=== PATIENT | female | born 1995 | race Caucasian/White ===

== ENCOUNTER 2018-07-19 06:20 | Day surgery (SDC) | payer BC ==
[~2018-07-19 06:20] MED LIST: Buffered Lidocaine 0.9% SYRIN* 5 ML/SYR SYRINGE INTRADERM ONE; Sodium Citrate/Citric Acid* 15 ML UDC PO ONE
[2018-07-19] MEDS ORDERED: Sodium Citrate/Citric Acid* 15 ML UDC ONE (06:57)
[2018-07-19] MEDS ORDERED: ceFAZolin 2 GM PREMIX in ORs 2 GM/50 ML BAG IVPB ONE (06:58)
[2018-07-19] MEDS ORDERED: Buffered Lidocaine 0.9% SYRIN* 5 ML/SYR SYRINGE ONE (06:58)
[2018-07-19] MEDS ORDERED: Bupivacaine 0.5% W/EPI SDV* 30 ML VIAL ONE (07:04)
[2018-07-19] MEDS ORDERED: EPINEPHRINE 1 MG/ML 1 ML VIAL ONE (07:04)
[2018-07-19] MEDS ORDERED: Midazolam* 1 MG/ML 2 ML VIAL (2 MG) ONE (07:28)
[2018-07-19] MEDS ORDERED: fentaNYL* 50 MCG/ML 2 ML VIAL (100 MCG VIAL) ONE ×4 (07:29→12:51)
[2018-07-19] MEDS ORDERED: Lidocaine 2% PF * 5 ML VIAL ONE (07:53)
[2018-07-19] MEDS ORDERED: Propofol* 10 MG/ML 20 ML BTL IV PUSH ONE (07:53)
[2018-07-19] MEDS ORDERED: Dexamethasone IV* 4 MG/ML 1 ML (4 MG) ONE (07:55)
[2018-07-19] MEDS ORDERED: Ondansetron INJ* 2 MG/ML VIAL IV PRN (08:29)
[2018-07-19] MEDS ORDERED: Naloxone* 0.4 MG/ML 1 ML VIAL IV PRN (08:29)
[2018-07-19] MEDS ORDERED: Ketorolac INJ* 30 MG/ML 1 ML VIAL ONE (10:54)
[2018-07-19] MEDS: fentaNYL* 50 MCG/ML 2 ML VIAL (100 MCG VIAL) IV PRN ×3 (12:01→12:59)
[2018-07-19] MEDS ORDERED: Morphine VIAL* 10 MG/ML 1 ML VIAL ONE (12:55)
[2018-07-19 13:46] VITALS: BP 127/70
[2018-07-19] MEDS ORDERED: oxyCODONE/Acetamin 5/325 MG* TAB ONE (13:59)
--- NOTE | 2018-07-20 06:58 | RAD ---
INDICATION: Right knee arthroscopically, fluoroscopic guidance. COMPARISON: Comparison is made with a prior MRI of the right knee from June 04, 2018. TECHNIQUE: 6 seconds of intermittent fluoroscopic guidance were provided a single spot film was obtained. FINDINGS: A spot film of a surgical instrument was obtained in the operating room. IMPRESSION: INTRAOPERATIVE CONTROL FILMS. CPT II Codes: G9500
--- NOTE | 2018-07-22 04:54 | OP ---
DATE OF OPERATION: 07/19/18 - [facility] DATE OF : 89 SURGEON: Gregorio Cisse MD ASSISTANTS: SAMMI Campbell and SAMMI Carias. A physician assistant to the vice president was required for the length of the procedure for assistance with positioning, knee manipulation, retraction, and closure. ANESTHESIOLOGIST: Dr. Lukas Rankin ANESTHESIA: General anesthesia, adductor canal block regional anesthesia. PRE-OP DIAGNOSES: 1. Right knee ACL tear, complete versus high grade partial thickness. 2. Right knee partial thickness, low-grade, LCL lateral collateral ligament tear. 3. Right knee partial thickness proximal MCL tear, medial collateral ligament. 4. Right knee possible partial thickness popliteus muscle tear. POST-OP DIAGNOSES: 1. Right knee ACL tear, complete, full thickness. 2. Right knee low-grade partial thickness lateral collateral ligament tear. 3. Right knee partial thickness proximal medial collateral ligament tear. 4. Right knee possible partial thickness popliteus muscle injury. 5. Right knee medial meniscus tear. OPERATIVE PROCEDURE: 1. Right knee arthroscopic ACL reconstruction with bone patellar bone autograft. 2. Right knee examination under anesthesia. 3. Right knee arthroscopic medial meniscus repair, all inside. ANTIBIOTICS: Ancef 2 g IV. IV FLUIDS: 1000 cc crystalloid. TOURNIQUET TIME: A total of 124 minutes at 300 mmHg. The patient had 41 minutes up followed by lengthy period of the tourniquet down followed by 83 minutes up. Nursing was tracking time. SKIN TO SKIN TIME: 192 minutes. ARTHROSCOPIC FLUID UTILIZED: Six bags each with 3 L for a total of 18 L. Radiation exposure was the use of a mini C-arm for 6 seconds for a total of 2.43 milligray. SPECIMEN: None. IMPLANTS: MELINDA Mitek screws, BioComposite. 10 x 23 mm in the femur. 9 x 23 mm in the tibia. Also, used a partially threaded non-cannulated large fragment set 4.5 mm Synthes screw with washer for backup fixation on the tibia. I used an Arthrex Fast-Fix 360 x 1 for my medial meniscus repair. COMPLICATIONS: None. ESTIMATED BLOOD LOSS: Minimal. INDICATIONS FOR PROCEDURE: The patient is a 22-year-old woman, tri[employer] at [employer], [employer] from [place], [place] who plays rugby, who sustained a knee injury on 06/01/18, over 6 weeks preoperatively. See history and physical for full details of injury and recovery preoperatively. MRI showed injuries to the collateral ligaments as well as to the ACL. The patient's MCL tear was partial and proximal, so I thought it would heal well with nonoperative management. The patient appeared to have a low-grade partial thickness, stretch injury to the lateral collateral ligament and popliteus. She had no increased laxity with varus stress testing and a negative dial test, so I believe that this would also be managed nonoperatively. The ACL, however, I recommended operative management for. The patient did rehabilitation preoperatively. I spoke with the patient and her family about nonoperative versus operative treatment of this injury. I also spoke about the different graft options. We decided on operative management with bone patellar bone autograft. Although meniscus treatment was not done, the surgical consent as it was not demonstrated by MRI imaging, we discussed that I would evaluate and treat all components of the knee including the menisci. Discussed risks and potential complications of procedure. DESCRIPTION OF PROCEDURE: In preoperative holding, the patient signed a written consent. Operative extremity was marked in preoperative holding. The patient underwent an adductor canal block by Dr. Rankin of Anesthesia. The patient was brought in to the operating room and placed supine on operating room table. She was sedated and intubated. I performed a mini time-out. I then conducted an evaluation under anesthesia of the right knee. ACL testing included Kwame's and anterior drawer. This showed significant laxity without a firm endpoint. This was different from the contralateral uninjured left knee. I examined the MCL of the right knee. The patient did have some laxity with the knee at 30 degrees of flexion, but no laxity with the knee and 0 degrees of flexion. This was compared to the contralateral left knee. I evaluated the lateral collateral ligament of the right knee. No varus laxity. I performed a dial test with the patient supine rather than prone. I noted no increased external rotation with the knee in either 30 or 90 degrees of flexion. The exam under anesthesia confirmed my decision not to operate on the posterolateral corner of the right knee. I was comfortable with some laxity with the knee in 30 degrees of flexion. The fact that there was no laxity with 0 degrees of knee flexion and that the laxity was only limited with the knee in 30 degrees of flexion, may be comfortable as well with nonoperative management of the MCL injury. A tourniquet was placed around the right thigh. The right lower extremity was prepped and draped. Formal timeout was performed. An Esmarch was applied and the tourniquet was elevated to 300 mmHg. An anterolateral knee arthroscopy portal was made. With the arthroscope, I conducted diagnostic arthroscopy. No articular cartilage damage to the patellofemoral compartment. I dropped down to the medial compartment. Medial compartment looked somewhat narrow from anterior to posterior. The posterior horn of the medial meniscus seemed subluxed slightly anteriorly. I was able to turn to the medial compartment after I had an arthroscopic probe. I moved to the intercondylar notch. The patient had a clear full thickness tear of the ACL proximally. I moved to the lateral compartment. No articular cartilage injury or meniscus tear. I made an anteromedial knee arthroscopy portal under direct visualization. I entered an arthroscopic probe. I visualized closely the posterior horn of the medial meniscus. There appeared to be partial thickness tear of the undersurface of the meniscus close to the meniscocapsular junction. On the superior surface, there was no tear to the meniscus, but there appeared to be some tearing to the capsule. This was not significantly long; however, it appeared that the combination of these 2 tears was enough to allow that medial meniscus to sublux forward both with and without probing with the arthroscopic probe. I debated nonoperative versus operative management of this. Given the increased mobility of this posterior horn of the medial meniscus, I thought that this might lack the stability for good healing. Therefore, I thought a meniscus repair would facilitate improved healing. I entered a sled from one of the portals. I then placed a Fast-Fix 360 all inside suture anchor into the posterior horn in the location of the tearing. I made the stitch more of a vertical mattress than a horizontal mattress, although it was slightly obliqued. I tightened the suture and then cut the excess suture. I liked the reduction of the meniscus. I next placed the De Kraus knee positioner in place. We spent some time fully tightening the De Kraus positioner, which was fixated to the table suboptimally. I made a midline anterior longitudinal skin incision from just proximal to distal pole of the patella to the distal end of the tibial tubercle. I changed knives and dissected down to patellar tendon. Of note, the patient did not have any sort of significant paratenon present superficial to the patella, which I normally encounter in the surgery. I measured the patient's patellar tendon. I noted it to be on the thin side. It narrowed as it moved from proximal to distal. Also, it was a little bit on the short side, measuring just over 4 cm in length. Two conserve remaining patellar tendon, I decided to make my graft 9 mm in width of the inner third of the patellar tendon rather than 10 mm. I made my cuts with a 10 blade. I then debbie out my planned bone cuts with electrocautery. I then used a micro sagittal saw to make these cuts with a 25 mm bone block taken off the distal pole of the patella and a 30 mm bone block taken off the tibial tubercle. We needed to switch saw devices twice, but finally I completed those cuts. I used a curved osteotome to complete the cuts. I dropped the tourniquet after having closed the patellar tendon with buried figure- of-eight stitches using Ethibond 0 suture, multiple along the length of the patellar tendon. We placed a wet sponge in the wound and I moved to the back table. At the back table, I contoured the bone blocks. I used crimpers and a rongeur. I sized the bone blocks. I sized both for 10 mm tunnels. I thought that the patellar bone block was a little bit on the small side for that, so I planned a larger screw by 1 mm than I would normally use. I placed one #5 FiberWire stitch in the proximal bone block and 2 in the distal bone block. One FiberWire at each end had several whipstitches placed in the patellar tendon before going through the bone block. This graft was held under tension on the back table as I returned to the knee. I made new anterolateral and anteromedial knee arthroscopy portals. I debrided the ACL stump, debrided the lateral wall of the intercondylar notch with VAPR shamontse and then performed a notchplasty with an arthroscopic brinda. I created a new anteromedial knee arthroscopy portal, more medial and inferior. Accessory. I then marked the 10:30 o'clock position. This was in line with the proximal extent of the articular cartilage posteriorly. I did so with the knee in 90 degrees of flexion. I then hyperflexed the knee to at least 115 degrees. I then placed my 7 mm offset around the back guide and placed a Beath pin from my accessory anteromedial portal through the femur and out the skin. I then drilled with a 10 mm acorn reamer, a 30 mm tunnel. I removed the shaver and the pin and shaved up the detritus. I liked my bone tunnel position. I then flexed the knee to 90 degrees. I designated the proper site for a tibial tunnel placement. I extended my skin incision slightly distally. I set my tibial guide pin angled to 55 degrees. I placed a tibial guide pin. I next overdrilled that with a 10 mm reamer. I removed drill and pin and shaved up the detritus. I placed a passing suture through the femoral and then the tibial tunnels and then passed my graft. I placed a nitinol wire, tapped, and then placed a 10 x 23 mm screw in the femur. Purchase was awesome, very tight. The screw was fully seated. Some tiny pieces of the BioComposite were shed and were shaved up with the arthroscopic shaver. The knee was fully extended, although perhaps was flexed 10 degrees in reality. I placed nitinol wire anterior, tapped, and then placed a 9 x 23 mm MELINDA screw in the tunnel, tibial. This was done with a posterior drawer maneuver being applied by a physician assistant to the vice president. I examined my ACL arthroscopically in variety of knee flexion positions and I liked my graft position and tension. I performed a Kwame and anterior drawer and the tension was excellent. I noted that some of my distal bone block was distal to the BioComposite screw. Perhaps, 14 mm of the 30 mm bone plug were distal to the screw. This meant that the 23 mm screw was flushed with 16 mm bone plug. This was adequate, but to be especially careful, I decided to back up this fixation. I placed a screw and washer distal to the tibial tunnel exit point. With the posterior drawer again, I placed a 4.5 mm partially threaded screw and washer. I used a mini C- arm to confirm the appropriate length of the screw. Irrigation of all wounds. I used some bone particles from my contoured bone plugs and placed those into the distal patella bone defect. I took some cancellous allograft and placed that into the tibial tubercle bone defect site. I closed some limited amount of paratenon proximally with Vicryl 2-0 suture stitches, running and non-running. There was not good periosteum or fascial tissue overlying the tibial tunnel exit site. I was able to close some overlying subcutaneous tissue and some fascial tissue just anterior to this aperture. I closed subcutaneous tissues about the long anterior incision with buried simple stitches using Vicryl 2-0 suture. Closure of the long anterior incision with a running subcuticular stitch using Monocryl 4.0 suture. Closure of the knee arthroscopy skin incisions with [id number] stitches using nylon 4-0 suture. Mastisol and Steri-Strips placed over the midline anterior incision, but not over the arthroscopy skin incisions. Xeroform, 4x4's, ABDs, sterile Webril, Damion bandage from foot to proximal thigh. Cooling unit. Knee brace locked in extension. The patient was awakened, extubated and brought to the PACU. DISPOSITION: The patient was discharged home when medically stable. Percocet as needed for pain control, Keflex for 3 days for infection prophylaxis, and add aspirin x2 weeks for DVT prophylaxis. Wound care instructions provided. The patient will follow up with me in 10 to 14 days postoperatively. The patient will begin physical therapy immediately. Given the very small nature of the meniscus tear only requiring one fixation device, I will make the patient 's range of motion unlimited. I plan on making the patient toe-touch weightbearing until her fusion resolves or mostly resolves. She is to begin physical therapy immediately. [id number]/CPS #: [id number] POPEYE
== END 2018-07-19 14:20 | disposition home or self-care (01) ==
LOC: OR 06:20
PROVIDERS: ATTEND Orthopaedic Surgery
DX: S83.511D Sprain of anterior cruciate ligament of right knee, subsequent encounter (principal); S83.411D Sprain of medial collateral ligament of right knee, subsequent encounter; S83.421D Sprain of lateral collateral ligament of right knee, subsequent encounter; X58.XXXD Exposure to other specified factors, subsequent encounter; G89.18 Other acute postprocedural pain
CPT/HCPCS: 76000; 81025; A9270-GY; C1713; C1776; J0690; J1100; J1885; J2250; J2270; J2704; J3010